=== PATIENT | female | born 1945 | race Caucasian/White ===

== ENCOUNTER 2017-12-01 14:29 | Observation (INO) ==
[2017-12-01] MEDS ORDERED: Ipratropium/Albuterol Neb 3 ML IH ONE (14:48)
[2017-12-01] MEDS ORDERED: methylPREDNISolone 125 MG/2 ML VIAL IVP ONE (14:48)
--- NOTE | 2017-12-01 15:11 | Emergency Department Note ---
Disposition Clinical Impression: Acute exacerbation of chronic obstructive airways disease Community acquired pneumonia Qualifiers: Laterality: right Lung location: middle lobe of lung Qualified Code(s): J18.1 - Lobar pneumonia, unspecified organism Metacarpal bone fracture Qualifiers: Encounter type: initial encounter Metacarpal bone: first Fracture type: closed Metacarpal location: unspecified portion of metacarpal Fracture morphology: unspecified fracture morphology Laterality: right Qualified Code(s): S62.201A - Unspecified fracture of first metacarpal bone, right hand, initial encounter for closed fracture Disposition: Admitted As Inpatient Condition: Good Time of Disposition: 18:07 SOB HPI - General Chief Complaint: ED Shortness of Breath/Dyspnea Stated Complaint: MATHEW Time Seen by Provider: 12/01/17 14:36 Source: patient, family Limitations: other Nursing Notes Reviewed: Yes Vital Signs Reviewed: Yes - History of Present Illness Patient is a 72-year-old female who presents to [facility] ED with a chief complaint of difficulty breathing and chest pain. States her symptoms started several weeks ago and have gotten worse. She was seen by her primary care physician who started her on nasal spray for allergies. States now she is having chest pain that persists for some time after she is coughing. Patient is a former smoker but has never been diagnosed with COPD or any other lung disease. States she has had a prior heart attack but does not currently have any stents in her heart. States the pain comes on with coughing and deep breathing. Chest pain as a tightness that is across her chest. Denies any nausea, vomiting, abdominal pain, problems with urination or bowel movements. States she coughs up green phlegm. Also has had intermittent fevers and chills. Pt Subjective Complaint: shortness of breath, cough, chest pain Onset (ago): week(s) (4) Severity: moderate Consistency/Duration: gradually worsening Improves with: nothing Worsens with: coughing Associated symptoms: Reports: chest pain, fever, cough, sputum production. Denies: nausea/vomiting, abdominal pain Treatment prior to arrival: none Cough present: Yes Cough Description: Involuntary Cough Frequency: Intermittent Sputum production: Yes Sputum Amount: Moderate Sputum Color: Green - Related Data Home oxygen amount: none Home Medications Medication Instructions Recorded Confirmed ALPRAZolam [Xanax 0.5 MG Tablet] 0.5 mg PO TID PRN 12/01/17 12/01/17 Ascorbic Acid [Vitamin C] 1,000 mg PO DAILY 12/01/17 12/01/17 Carvedilol [Carvedilol] 12.5 mg PO BID 12/01/17 12/01/17 Clobetasol Propionate 0.05% 1 appl TP BID 12/01/17 12/01/17 [Temovate] Cyanocobalamin (Vitamin B-12) 1,000 mcg PO DAILY 12/01/17 12/01/17 [Vitamin B12] Lactobacillus Combination No.4 1 cap PO DAILY 12/01/17 12/01/17 [Probiotic] Multivitamin [Animal Chews] 1 tab PO DAILY 12/01/17 12/01/17 Sertraline [Zoloft] 100 mg PO DAILY 12/01/17 12/01/17 hydrOXYzine HCl [Hydroxyzine HCl] 50 mg PO TID PRN 12/01/17 12/01/17 Allergies Allergy/AdvReac Type Severity Reaction Status Date / Time latex Allergy Rash Verified 12/01/17 17:20 clonazepam AdvReac See Verified 12/01/17 17:20 Comments All systems ED: reviewed and negative except as stated. Past Medical History - Past Medical History Attestation: Yes The following information was validated with the patient. Source: patient Medical history: Reports: arthritis, diabetes, fibromyalgia, GERD, hyperlipidemia, hypertension, liver disease, myocardial infarction Surgical history: Reports: cholecystectomy, hysterectomy, knee replacement Psychiatric history: Reports: anxiety, depression - Social History Smoking Status: Former smoker Smokeless Tobacco Status: No Alcohol use: Reports: none Drug use: Reports: none Physical Exam - General Limitations: other General appearance: alert, in no apparent distress - Head Head exam: atraumatic, normocephalic, normal inspection - Eye Eye exam: Present: normal appearance, EOMI - ENT ENT exam: normal exam, normal oropharynx, mucous membranes moist, TM's normal bilaterally - Neck Neck exam: Present: normal inspection, full ROM, trachea midline - Chest Chest inspection: Present: normal inspection, symmetric chest wall rise - Respiratory Respiratory exam: Present: wheezes (diffusely bilaterally) - Cardiovascular Cardiovascular exam: Present: regular rate, normal rhythm, normal heart sounds - Abdominal Exam Abdominal exam: Present: soft, Non-Tender. Absent: tenderness, distention, guarding, rebound, rigidity - Extremities Exam Extremities exam: Present: full ROM, other (Ecchymosis over the right hand with tenderness to palpation in the dorsal aspect.). Absent: pedal edema - Back Exam Back exam: Present: normal inspection, full ROM. Absent: tenderness - Neurological Exam Neurological exam: Present: alert, oriented X3 - Psychiatric Psychiatric exam: Present: normal affect, normal mood - Skin Skin exam: Present: warm, dry, intact, normal color Course Course Narrative: Patient seen and examined. Difficulty breathing and chest pain. Upon examination, she does have wheezing diffusely. She does maintain her oxygen saturation above 94% on room air. Triple DuoNeb ordered as well as one 25 mg of IV Solu-Medrol. Cardiopulmonary workup initiated. We will also get a d- dimer level since patient has pleuritic chest pain. Patient also complaining of right hand pain since she dropped an iron on it a few days ago. We will get a hand x-ray to rule out fracture. - Reevaluation(s) Reevaluation #1: Labwork showed an elevated d-dimer of 1300. CTA of the chest was ordered. Showed some signs of bronchitis/possible pneumonia, but no PE. We will go ahead and treat with azithromycin and Rocephin. Lactic acid was mildly elevated at 2.4. xray shows Intra-articular fracture through the base of the 1st metacarpal which is mildly displaced. Hand surgery Dr. Starks was consulted and will see her while she is in the hospital. Will place in thumb spica splint. Discussed with hospitalist who has accepted pt for admission. Time: 17:37 Vital Signs Temperature 97.7 F 12/01/17 14:30 Pulse Rate 67 12/01/17 14:30 Respiratory Rate 20 12/01/17 14:30 Blood Pressure 161/85 12/01/17 14:30 O2 Sat by Pulse Oximetry 95 12/01/17 14:30 Temperature 97.7 F 12/01/17 14:54 Pulse Rate 58 12/01/17 15:18 Respiratory Rate 18 12/01/17 15:18 Blood Pressure 121/62 12/01/17 15:18 O2 Sat by Pulse Oximetry 96 12/01/17 15:18 Oxygen Delivery Oxygen Delivery Room Air Shortness of Breath/Dyspnea - Medical Records Medical records reviewed: Yes I reviewed the patient's medical records. - Lab Data Lab results reviewed: Yes I reviewed the patient's lab results. Result diagrams: 12/01/17 15:14 12/01/17 15:14 Lab Results 12/01/17 12/01/17 12/01/17 Range/Units 15:14 15:14 15:14 WBC 5.6 (4.3-11.1) K/mcL RBC 4.19 (3.82-4.97) M/mcL Hgb 13.8 (11.5-15.4) g/dL Hct 39.9 (35.3-44.9) % MCV 95.2 (83.0-100.0) fL MCH 32.9 (28.0-33.3) pg MCHC 34.6 (31.6-35.5) g/dL RDW 14.2 (11.5-14.5) % Plt Count 84 L (140-400) K/mcL MPV 10.5 (9.4-12.4) fL Immature Gran % 0.2 (0-4) % Seg Neutrophils % 72.0 % Lymphocytes % 17.2 % Monocytes % 6.2 % Eosinophils % 3.9 % Basophils % 0.5 % Neutrophils # 4.0 (1.6-8.9) K/mcL Lymphocytes # 1.0 (0.6-4.6) K/mcL Monocytes # 0.4 (0.0-1.3) K/mcL Eosinophils # 0.2 (0.0-0.6) K/mcL Basophils # 0.0 (0.0-0.2) K/mcL D-Dimer 1305 H (0-500) ng/mLFEU Sodium 141 (136-145) mEq/L Potassium 4.4 (3.5-5.1) mEq/L Chloride 104 (98-107) mEq/L Carbon Dioxide 30 H (23-29) mEq/L BUN 19 (8-23) mg/dL Creatinine 0.77 (0.60-1.20) mg/dL Est GFR ( Amer) > 60 (> 60) Est GFR (Non-Af Amer) > 60 (> 60) BUN/Creatinine Ratio 25 (6-26) Glucose 229 H (70-105) mg/dL Calculated Osmolality 302 H (280-300) Lactic Acid (0.5-2.2) mmol/L Calcium 9.3 (8.6-10.3) mg/dL Troponin I < 0.03 (< 0.04) ng/mL B-Natriuretic Peptide (Less than 100) pg/mL 12/01/17 12/01/17 Range/Units 15:14 15:14 WBC (4.3-11.1) K/mcL RBC (3.82-4.97) M/mcL Hgb (11.5-15.4) g/dL Hct (35.3-44.9) % MCV (83.0-100.0) fL MCH (28.0-33.3) pg MCHC (31.6-35.5) g/dL RDW (11.5-14.5) % Plt Count (140-400) K/mcL MPV (9.4-12.4) fL Immature Gran % (0-4) % Seg Neutrophils % % Lymphocytes % % Monocytes % % Eosinophils % % Basophils % % Neutrophils # (1.6-8.9) K/mcL Lymphocytes # (0.6-4.6) K/mcL Monocytes # (0.0-1.3) K/mcL Eosinophils # (0.0-0.6) K/mcL Basophils # (0.0-0.2) K/mcL D-Dimer (0-500) ng/mLFEU Sodium (136-145) mEq/L Potassium (3.5-5.1) mEq/L Chloride (98-107) mEq/L Carbon Dioxide (23-29) mEq/L BUN (8-23) mg/dL Creatinine (0.60-1.20) mg/dL Est GFR ( Amer) (> 60) Est GFR (Non-Af Amer) (> 60) BUN/Creatinine Ratio (6-26) Glucose (70-105) mg/dL Calculated Osmolality (280-300) Lactic Acid 2.4 H (0.5-2.2) mmol/L Calcium (8.6-10.3) mg/dL Troponin I (< 0.04) ng/mL B-Natriuretic Peptide 144 H (Less than 100) pg/mL - Radiology Data Radiology results reviewed: Yes I reviewed the patient's radiology results. Chest X-Ray 12/01/17 14:49 IMPRESSION: No acute process. D/ / Alberto Perez MD / Alberto Perez MD Interpreting Provider: Alberto Perez MD Chest CTA 12/01/17 15:50 IMPRESSION: 1. No acute pulmonary artery embolism. 2. Indeterminate ground-glass density within the right middle lobe and more nodular appearance within the right upper lobe with additional right upper lobe bronchiolitis. The findings suggest probable postinfectious or inflammatory origin. Recommend three month re-evaluation to assess stability or resolution. RECOMMENDATIONS: Fleischner Society guidelines for follow-up and management of incidentally detected subsolid pulmonary nodules: Multiple subsolid nodules < 6 mm - CT at 3-6 months. If stable, consider CT at 2 and 4 years. > than or equal to 6 mm - CT at 3-6 months. Subsequent management based on the most suspicious nodule(s). - Low risk patients include individuals with minimal or absent history of smoking and other known risk factors. - High risk patients include individuals with a history or smoking or known risk factors. Radiology 2017 http://pubs.rsna.org/doi/full/10.1148/radiol.[email or web address] D/ / 12/01/2017 17:00:24 Alberto Perez MD / jameson Interpreting Provider: Alberto Perez MD Hand X-Ray 12/01/17 17:05 IMPRESSION: 1. Intra-articular fracture through the base of the 1st metacarpal which is mildly displaced. 2. 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 3. Osteopenia. D/ / Kurtis Louis MD / Kurtis Louis MD Interpreting Provider: Kurtis Louis MD - EKG Data EKG attestation: Yes I reviewed and interpreted this EKG. EKG results narrative: EKG done at 1453 shows normal sinus rhythm with a rate of [address] elevation or depression. There is inverted T waves noted in leads V3 through V6 as well as leads 2, 3, aVF. These appear flattened in the prior EKG done 05/07/2009.
[2017-12-01 15:33] LABS: Basophils % 0.5 %; Eosinophils # 0.2 K/mcL (0.0-0.6); Eosinophils % 3.9 %; Hematocrit 39.9 % (35.3-44.9); Hemoglobin 13.8 g/dL (11.5-15.4); Immature Granulocytes % 0.2 % (0-4); Lymphocytes % 17.2 %; Mean Corpuscular HGB Conc 34.6 g/dL (31.6-35.5); Mean Corpuscular Hemoglobin 32.9 pg (28.0-33.3); Mean Corpuscular Volume 95.2 fL (83.0-100.0); Mean Platelet Volume 10.5 fL (9.4-12.4); Monocytes # 0.4 K/mcL (0.0-1.3); Monocytes % 6.2 %; Platelet Count 84 K/mcL (140-400); Red Blood Count 4.19 M/mcL (3.82-4.97); Red Cell Distribution Width 14.2 % (11.5-14.5)
[2017-12-01] MEDS ORDERED: Isovue-370 500 ML INFUS..BTL IV ONE (15:50)
[2017-12-01] MEDS ORDERED: 0.9 % Sodium Chloride 1,000 ML IVC ONE (15:51)
[2017-12-01 15:58] LABS: BUN/Creatinine Ratio 25 (6-26); Blood Urea Nitrogen 19 mg/dL (8-23); Calcium 9.3 mg/dL (8.6-10.3); Carbon Dioxide 30 mEq/L (23-29); Chloride 104 mEq/L (98-107); Glucose 229 mg/dL (70-105); Osmolality,Calculated 302 (280-300); Potassium 4.4 mEq/L (3.5-5.1); Sodium 141 mEq/L (136-145); eGFR For African Americans > 60 (> 60); eGFR For Non-African Americans > 60 (> 60)
[2017-12-01 15:59] LABS: Troponin I < 0.03 ng/mL (< 0.04)
--- NOTE | 2017-12-01 16:11 | Emergency Department Note ---
Disposition Clinical Impression: Acute exacerbation of chronic obstructive airways disease Disposition: Still a Patient Condition: Good Forms: ED Satisfaction Letter General Adult HPI - General Chief complaint: ED Shortness of Breath/Dyspnea Stated complaint: MATHEW Time Seen by Provider: 12/01/17 14:36 Source: patient, family Limitations: other - History of Present Illness Pain Scale: 0 - Related Data Home Medications Medication Instructions Recorded Confirmed DULoxetine [Cymbalta] 20 mg PO DAILY 12/30/15 12/30/15 Esomeprazole Magnesium [Nexium] 40 mg PO DAILY 12/30/15 12/30/15 Lisinopril/Hydrochlorothiazide 1 each PO DAILY 12/30/15 12/30/15 [Zestoretic 10-12.5 mg Tablet] Ondansetron HCl [Zofran] 4 mg PO DAILY 12/30/15 12/30/15 clonazePAM [Klonopin] 0.5 mg PO BID 12/30/15 12/30/15 Previous Rx's Medication Instructions Recorded Sulfamethoxazole/Trimeth DS 1 each PO BID #20 tablet 09/19/15 [Bactrim DS] Ciprofloxacin HCl [Cipro] 250 mg PO BID 10 Days tablet 12/30/15 Ondansetron ODT [Zofran ODT] 4 mg SL Q8HR PRN #15 tab.rapdis 12/30/15 metroNIDAZOLE [Flagyl] 500 mg PO TID 10 Days tablet 12/30/15 Ondansetron HCl [Zofran] 4 mg PO Q4H PRN #10 tablet 03/20/16 Ferrous Sulfate 325 mg PO BIDWM #60 tablet 05/30/16 hydrOXYzine HCl [Hydroxyzine HCl] 25 mg PO BID #60 tab 07/03/16 Allergies Allergy/AdvReac Type Severity Reaction Status Date / Time latex Allergy Rash Verified 03/15/17 14:43 clonazepam AdvReac See Verified 03/15/17 14:43 Comments Past Medical History - Past Medical History Medical history: Reports: arthritis, diabetes, fibromyalgia, GERD, hyperlipidemia, hypertension, liver disease, myocardial infarction Surgical history: Reports: cholecystectomy, hysterectomy, knee replacement Psychiatric history: Reports: anxiety, depression - Social History Smoking Status: Former smoker Smokeless Tobacco Status: No Alcohol use: Reports: none Drug use: Reports: none Physical Exam - General Limitations: other General appearance: alert, in no apparent distress Course Vital Signs Temperature 97.7 F 12/01/17 14:30 Pulse Rate 67 12/01/17 14:30 Respiratory Rate 20 12/01/17 14:30 Blood Pressure 161/85 12/01/17 14:30 O2 Sat by Pulse Oximetry 95 12/01/17 14:30 Temperature 97.7 F 12/01/17 14:54 Pulse Rate 58 12/01/17 15:18 Respiratory Rate 18 12/01/17 15:18 Blood Pressure 121/62 12/01/17 15:18 O2 Sat by Pulse Oximetry 96 12/01/17 15:18 Oxygen Delivery Oxygen Delivery Room Air Medical Decision Making - Lab Data Result diagrams: 12/01/17 15:14 12/01/17 15:14 Lab Results 12/01/17 12/01/17 12/01/17 Range/Units 15:14 15:14 15:14 WBC 5.6 (4.3-11.1) K/mcL RBC 4.19 (3.82-4.97) M/mcL Hgb 13.8 (11.5-15.4) g/dL Hct 39.9 (35.3-44.9) % MCV 95.2 (83.0-100.0) fL MCH 32.9 (28.0-33.3) pg MCHC 34.6 (31.6-35.5) g/dL RDW 14.2 (11.5-14.5) % Plt Count 84 L (140-400) K/mcL MPV 10.5 (9.4-12.4) fL Immature Gran % 0.2 (0-4) % Seg Neutrophils % 72.0 % Lymphocytes % 17.2 % Monocytes % 6.2 % Eosinophils % 3.9 % Basophils % 0.5 % Neutrophils # 4.0 (1.6-8.9) K/mcL Lymphocytes # 1.0 (0.6-4.6) K/mcL Monocytes # 0.4 (0.0-1.3) K/mcL Eosinophils # 0.2 (0.0-0.6) K/mcL Basophils # 0.0 (0.0-0.2) K/mcL D-Dimer 1305 H (0-500) ng/mLFEU Sodium 141 (136-145) mEq/L Potassium 4.4 (3.5-5.1) mEq/L Chloride 104 (98-107) mEq/L Carbon Dioxide 30 H (23-29) mEq/L BUN 19 (8-23) mg/dL Creatinine 0.77 (0.60-1.20) mg/dL Est GFR ( Amer) > 60 (> 60) Est GFR (Non-Af Amer) > 60 (> 60) BUN/Creatinine Ratio 25 (6-26) Glucose 229 H (70-105) mg/dL Calculated Osmolality 302 H (280-300) Lactic Acid (0.5-2.2) mmol/L Calcium 9.3 (8.6-10.3) mg/dL Troponin I < 0.03 (< 0.04) ng/mL B-Natriuretic Peptide (Less than 100) pg/mL 12/01/17 12/01/17 Range/Units 15:14 15:14 WBC (4.3-11.1) K/mcL RBC (3.82-4.97) M/mcL Hgb (11.5-15.4) g/dL Hct (35.3-44.9) % MCV (83.0-100.0) fL MCH (28.0-33.3) pg MCHC (31.6-35.5) g/dL RDW (11.5-14.5) % Plt Count (140-400) K/mcL MPV (9.4-12.4) fL Immature Gran % (0-4) % Seg Neutrophils % % Lymphocytes % % Monocytes % % Eosinophils % % Basophils % % Neutrophils # (1.6-8.9) K/mcL Lymphocytes # (0.6-4.6) K/mcL Monocytes # (0.0-1.3) K/mcL Eosinophils # (0.0-0.6) K/mcL Basophils # (0.0-0.2) K/mcL D-Dimer (0-500) ng/mLFEU Sodium (136-145) mEq/L Potassium (3.5-5.1) mEq/L Chloride (98-107) mEq/L Carbon Dioxide (23-29) mEq/L BUN (8-23) mg/dL Creatinine (0.60-1.20) mg/dL Est GFR ( Amer) (> 60) Est GFR (Non-Af Amer) (> 60) BUN/Creatinine Ratio (6-26) Glucose (70-105) mg/dL Calculated Osmolality (280-300) Lactic Acid 2.4 H (0.5-2.2) mmol/L Calcium (8.6-10.3) mg/dL Troponin I (< 0.04) ng/mL B-Natriuretic Peptide 144 H (Less than 100) pg/mL Attestation Statement - Attestation Attestation: I examined this patient and my medical decision-making was reviewed with the Resident Physician. I agree with the documented findings, disposition and treatment plan as described except to the extent set forth below. 72 year old female presents to the ED with complaints of MATHEW and has had pulse ox of upper 80s at home ith cough. WE will do cardiopulmonary workup including a CTA chest due to D-dimer of 1300. Liely be admitted to medicine since at rest she is 91%
[2017-12-01] MEDS ORDERED: cefTRIAXone 2,000 MG in 0.9 % Sodium Chloride Mini Bag 100 ML IVPB ONE (17:10)
[2017-12-01] MEDS ORDERED: Azithromycin 500 MG in D5% in Water 250 ML IVPB ONE (17:10)
[2017-12-01] MEDS ORDERED: hydrOXYzine pamoate 25 MG CAPSULE PO PRN (18:04)
[2017-12-01] MEDS ORDERED: Naloxone 0.4 MG/ML INJ IVP PRN (18:09)
[2017-12-01] MEDS ORDERED: Acetaminophen 325 MG TABLET PO PRN (18:09)
[2017-12-01] MEDS ORDERED: Dextrose Gel 15 GM/37.5 ML TUBE PO PRN ×2 (18:16)
[2017-12-01] MEDS ORDERED: *HR* Dextrose 50 % in Water (Syg) 50 ML SYRINGE IVP PRN (18:16)
[2017-12-01] MEDS ORDERED: D5% in Water 1,000 ML IVC PRN (18:16)
--- NOTE | 2017-12-01 18:21 | Internal Med History&Physical ---
Addendum entered and electronically signed by Javan Tucker 12/01/17 19:04: Original Note: <GarrettJavan - Last Filed: 12/01/17 18:18> Date of Encounter: 12/01/17 Time of Encounter: 18:18 Internal Medicine - H&P: HPI Admitted From: Home Plans for Post Hospital Care: Home History of present illness: Ms. Jameson is a 72-year-old female who presents to [facility] ED with a chief complaint of difficulty breathing and chest pain. States her symptoms started several weeks ago and have gotten worse. She was seen by her primary care physician who started her on nasal spray for allergies. States now she is having chest pain that persists for some time after she is coughing. Patient is a former smoker but has never been diagnosed with COPD or any other lung disease. States she has had a prior heart attack but does not currently have any stents in her heart. States the pain comes on with coughing and deep breathing. Chest pain as a tightness that is across her chest. Denies any nausea, vomiting, abdominal pain, problems with urination or bowel movements. States she coughs up green phlegm. Also has had intermittent fevers and chills. She also reported recent accident, when heavy object landed on her right hand 2 days ago. She had a very bad pain in the right hand. At the ED, her vital signs were stable, labs revealed elevated lactate, CT chest showed possible pneumonia. Hand x-ray revealed first metacarpal fracture. A cast was placed by ED physician. She will be admitted as inpatient for further management. Past Med Surg Social Fam HX - Past Medical History Medical history: arthritis, diabetes, fibromyalgia, GERD, hyperlipidemia, hypertension, liver disease, myocardial infarction Psychiatric history: anxiety, depression - Past Surgical History Surgical History: cholecystectomy, hysterectomy, knee replacement - Social History Smoking Status: Former smoker Smokeless Tobacco Status: No Alcohol use: none Drug use: none Internal Medicine - H&P: Meds ALPRAZolam [Xanax 0.5 MG Tablet] 0.5 mg PO TID PRN 12/01/17 [History] Ascorbic Acid [Vitamin C] 1,000 mg PO DAILY 12/01/17 [History] Carvedilol [Carvedilol] 12.5 mg PO BID 12/01/17 [History] Clobetasol Propionate 0.05% [Temovate] 1 appl TP BID 12/01/17 [History] Cyanocobalamin (Vitamin B-12) [Vitamin B12] 1,000 mcg PO DAILY 12/01/17 [History ] Lactobacillus Combination No.4 [Probiotic] 1 cap PO DAILY 12/01/17 [History] Multivitamin [Animal Chews] 1 tab PO DAILY 12/01/17 [History] Sertraline [Zoloft] 100 mg PO DAILY 12/01/17 [History] hydrOXYzine HCl [Hydroxyzine HCl] 50 mg PO TID PRN 12/01/17 [History] 3 Allergy/AdvReac Type Severity Reaction Status Date / Time latex Allergy Rash Verified 12/01/17 17:20 clonazepam AdvReac See Verified 12/01/17 17:20 Comments All Systems PM: A 10-system review of systems was performed and is negative for pertinent findings except as documented above in the HPI. Review of systems: REVIEW OF SYSTEMS: CONSTITUTIONAL: see HPI. HEENT: Eyes: No visual loss, blurred vision, double vision or yellow sclerae. Ears, Nose, Throat: No hearing loss, sneezing, congestion, runny nose or sore throat. SKIN: No rash or itching. CARDIOVASCULAR: see HPI. RESPIRATORY: see HPI. GASTROINTESTINAL: No anorexia, nausea, vomiting or diarrhea. No abdominal pain or blood. GENITOURINARY: No dysuria, urgency, or frequency. NEUROLOGICAL: No headache, dizziness, syncope, paralysis, ataxia, numbness or tingling in the extremities. No change in bowel or bladder control. MUSCULOSKELETAL: No muscle, back pain, joint pain or stiffness. HEMATOLOGIC: No anemia, bleeding or bruising. LYMPHATICS: No enlarged nodes. No history of splenectomy. PSYCHIATRIC: No history of depression or anxiety. ENDOCRINOLOGIC: No reports of sweating, cold or heat intolerance. No polyuria or polydipsia. - Constitutional Vitals: Temp Pulse Resp BP Pulse Ox 97.7 F 58 18 121/62 96 12/01/17 14:54 12/01/17 15:18 12/01/17 15:18 12/01/17 15:18 12/01/17 15:18 General appearance: Present: A&O X 3 Exam: PHYSICAL EXAMINATION: GENERAL APPEARANCE: The patient is alert, oriented and in no acute distress. HEENT: Head is normocephalic. The sinuses are nontender. Pupils are equal and reactive. The nares are patent. Oropharynx clear without lesions. NECK: Supple without lymphadenopathy. HEART: Regular rate and rhythm. LUNGS: No crackles or wheezes are heard. ABDOMEN: Soft, nontender, nondistended with good bowel sounds heard. Inguinal area is normal. EXTREMITIES: Without cyanosis, clubbing or edema. NEUROLOGICAL: Gross nonfocal. SKIN: Warm and dry without any rash. Internal Med - H&P Results - Labs CBC & Chem 7: 12/01/17 15:14 12/01/17 15:14 - Assessment and plan (1) Chest pain Current Visit: Yes Status: Acute Assessment and plan: 72-year-old female, former smoker, presented with shortness breath, cough, any chest pain. - Chest pain is associated with cough and breathing, likely pruritic. - Continue cycle troponin, telemetry monitoring, EKG as needed. Qualifiers: Chest pain type: chest pain on breathing Qualified Code(s): R07.1 - Chest pain on breathing; R07.81 - Pleurodynia (2) Community acquired pneumonia Current Visit: Yes Status: Acute Assessment and plan: We will treat as community-acquired pneumonia with antibiotics, this from icing plus Rocephin. Pending streppneumo and Legionella antigen. Qualifiers: Laterality: right Lung location: middle lobe of lung Qualified Code(s): J18.1 - Lobar pneumonia, unspecified organism (3) Metacarpal bone fracture Current Visit: Yes Status: Acute Assessment and plan: Chest x-ray right hand revealed first metacarpal fracture, cast applied by ED physician, orthopedics consulted. Qualifiers: Encounter type: initial encounter Metacarpal bone: first Fracture type: closed Metacarpal location: unspecified portion of metacarpal Fracture morphology: unspecified fracture morphology Laterality: right Qualified Code (s): S62.201A - Unspecified fracture of first metacarpal bone, right hand, initial encounter for closed fracture (4) Elevated blood sugar level Current Visit: Yes Status: Acute Assessment and plan: She never been diagnosis with diabetes, will check hemoglobin A1c, put patient on insulin sliding scale. (5) Osteopenia Current Visit: Yes Status: Acute Assessment and plan: X-ray right hand revealed osteopenia, will check a vitamin D level, we will place if it is low. Qualifiers: Osteopenia location: hand Laterality: right Qualified Code(s): M85.841 - Other specified disorders of bone density and structure, right hand - Time Spent With Patient Total time spent is greater than 50% in coordination of care (as documented) at patient's floor/unit and/or counseling patient: Greater than 35 minutes <Carol Ann Sadler - Last Filed: 12/01/17 19:59> Date of Encounter: 12/01/17 Internal Medicine - H&P: HPI History of present illness: Ms. Jameson is a 72 year old female All Systems PM: A 10-system review of systems was performed and is negative for pertinent findings except as documented above in the HPI. - Constitutional Vitals: Temp Pulse Resp BP Pulse Ox 98.1 F 65 18 176/78 94 12/01/17 19:33 12/01/17 19:33 12/01/17 19:33 12/01/17 19:33 12/01/17 19:33 Internal Med - H&P Results - Labs CBC & Chem 7: 12/01/17 15:14 12/01/17 15:14 Labs: Cardiac Enzymes 12/01/17 Range/Units 18:20 Troponin I < 0.03 (< 0.04) ng/mL - Attending Attestation I have seen and examined this patient independently. I have discussed with [employer] Mr Tucker regarding the management plan. Agree with the documentation. - Assessment and plan (1) Community acquired pneumonia Current Visit: Yes Status: Acute Qualifiers: Laterality: right Lung location: middle lobe of lung Qualified Code(s): J18.1 - Lobar pneumonia, unspecified organism (2) Metacarpal bone fracture Current Visit: Yes Status: Acute Qualifiers: Encounter type: initial encounter Metacarpal bone: first Fracture type: closed Metacarpal location: unspecified portion of metacarpal Fracture morphology: unspecified fracture morphology Laterality: right Qualified Code (s): S62.201A - Unspecified fracture of first metacarpal bone, right hand, initial encounter for closed fracture (3) Chest pain Current Visit: Yes Status: Acute Qualifiers: Chest pain type: chest pain on breathing Qualified Code(s): R07.1 - Chest pain on breathing; R07.81 - Pleurodynia (4) Elevated blood sugar level Current Visit: Yes Status: Acute (5) Osteopenia Current Visit: Yes Status: Acute Qualifiers: Osteopenia location: hand Laterality: right Qualified Code(s): M85.841 - Other specified disorders of bone density and structure, right hand - Time Spent With Patient Total time spent is greater than 50% in coordination of care (as documented) at patient's floor/unit and/or counseling patient:
[2017-12-01] MEDS ORDERED: Ipratropium/Albuterol Neb 3 ML IH PRN (19:05)
[2017-12-01] MEDS: traMADol 50 MG TABLET PO PRN (20:02)
[2017-12-01] MEDS: *HR* Heparin 5,000 UNIT/ML VIAL SQ SCH (20:03)
[2017-12-01] MEDS: Azithromycin 500 MG in D5% in Water 250 ML IVPB SCH (20:04)
[2017-12-01] MEDS: Ipratropium/Albuterol Neb 3 ML IH SCH ×2 (21:11→21:45)
[2017-12-01] MEDS: CLOBETASOL PROPIONATE 15 GM TUBE TP SCH (21:53)
[2017-12-01] MEDS: ALPRAZolam 0.5 MG TABLET PO PRN (21:54)
[2017-12-01] MEDS: Insulin LISPRO 300 UNITS/3 ML VIAL SQ SCH (21:56)
[2017-12-01] MEDS: 0.9 % Sodium Chloride 1,000 ML IVC SCH (23:36)
[2017-12-02 01:36] LABS: Hematocrit 36.6 % (35.3-44.9); Hemoglobin 12.5 g/dL (11.5-15.4); Mean Corpuscular HGB Conc 34.2 g/dL (31.6-35.5); Mean Corpuscular Hemoglobin 32.6 pg (28.0-33.3); Mean Corpuscular Volume 95.6 fL (83.0-100.0); Neutrophils # 3.2 K/mcL (1.6-8.9); Platelet Count 76 K/mcL (140-400); Red Blood Count 3.83 M/mcL (3.82-4.97); Red Cell Distribution Width 14.2 % (11.5-14.5); Segmented Neutrophils % 86.9 %
[2017-12-02 01:37] LABS: Basophils % 0.3 %; Immature Granulocytes % 0.3 % (0-4); Lymphocytes # 0.4 K/mcL (0.6-4.6); Lymphocytes % 9.8 %; Monocytes # 0.1 K/mcL (0.0-1.3); Monocytes % 2.7 %
[2017-12-02 01:58] LABS: BUN/Creatinine Ratio 24 (6-26); Blood Urea Nitrogen 19 mg/dL (8-23); Carbon Dioxide 22 mEq/L (23-29); Chloride 106 mEq/L (98-107); Glucose 349 mg/dL (70-105); Osmolality,Calculated 300 (280-300); Potassium 3.5 mEq/L (3.5-5.1); Sodium 137 mEq/L (136-145); eGFR For African Americans > 60 (> 60); eGFR For Non-African Americans > 60 (> 60)
[2017-12-02] MEDS: Ipratropium/Albuterol Neb 3 ML IH SCH ×4 (04:15→22:19)
[2017-12-02] MEDS: traMADol 50 MG TABLET PO PRN (04:34)
[2017-12-02] MEDS: *HR* Heparin 5,000 UNIT/ML VIAL SQ SCH (05:13)
[2017-12-02] MEDS: Cyanocobalamin (B-12) 1,000 MCG TABLET PO SCH (07:44)
[2017-12-02] MEDS: Lactobacillus 1 EACH CAP.SPRINK PO SCH (07:44)
[2017-12-02] MEDS: cefTRIAXone 1,000 MG in Water for inj. (sterile) 20 ML 10 ML IVP SCH (07:44)
[2017-12-02] MEDS: 0.9 % Sodium Chloride 1,000 ML IVC SCH (07:44)
[2017-12-02] MEDS: Ascorbic Acid 500 MG TABLET PO SCH (07:45)
[2017-12-02] MEDS: Multivit/Ca/Min/Fe/FA 1 TAB TABLET PO SCH (07:45)
[2017-12-02] MEDS: Insulin LISPRO 300 UNITS/3 ML VIAL SQ SCH ×4 (07:52→20:33)
[2017-12-02] MEDS: CLOBETASOL PROPIONATE 15 GM TUBE TP SCH ×2 (07:53→21:28)
[2017-12-02] MEDS: ALPRAZolam 0.5 MG TABLET PO PRN ×3 (08:08→22:52)
[2017-12-02] MEDS: Ketorolac 30 MG/ML VIAL IVP PRN ×2 (11:05→19:49)
--- NOTE | 2017-12-02 17:38 | Internal Med Progress Note ---
Date of Encounter: 12/02/17 Time of Encounter: 11:00 - Assessment and plan (1) Community acquired pneumonia Current Visit: Yes Status: Acute Assessment and plan: Patient with shortness of breath with suspected pneumonia Continue IV azithromycin in addition to IV ceftriaxone Qualifiers: Laterality: right Lung location: middle lobe of lung Qualified Code(s): J18.1 - Lobar pneumonia, unspecified organism (2) Metacarpal bone fracture Current Visit: Yes Status: Acute Assessment and plan: X-ray of right hand revealed first metacarpal fracture; cast applied by ED physician orthopedics consulted and appreciate recommendations. Qualifiers: Encounter type: initial encounter Metacarpal bone: first Fracture type: closed Metacarpal location: unspecified portion of metacarpal Fracture morphology: unspecified fracture morphology Laterality: right Qualified Code (s): S62.201A - Unspecified fracture of first metacarpal bone, right hand, initial encounter for closed fracture (3) Chest pain Current Visit: Yes Status: Acute Assessment and plan: Cardiac biomarkers negative Suspect secondary to pneumonia Continue to monitor on telemetry Qualifiers: Chest pain type: chest pain on breathing Qualified Code(s): R07.1 - Chest pain on breathing; R07.81 - Pleurodynia (4) Osteopenia Current Visit: Yes Status: Acute Assessment and plan: X-ray right hand revealed osteopenia vitamin D level within normal limits Qualifiers: Osteopenia location: hand Laterality: right Qualified Code(s): M85.841 - Other specified disorders of bone density and structure, right hand - Time Spent With Patient Total time spent is greater than 50% in coordination of care (as documented) at patient's floor/unit and/or counseling patient: - Subjective Interval history: Patient complaining of right hand pain this morning secondary to right first metacarpal fracture Patient also with shortness of breath secondary to suspected community acquired pneumonia - Constitutional Vitals: Temp Pulse Resp BP Pulse Ox 99.2 F 64 18 157/75 94 12/02/17 16:04 12/02/17 16:04 12/02/17 16:11 12/02/17 16:04 12/02/17 16:11 General appearance: Present: A&O X 3, no acute distress - Respiratory Respiratory exam: Present: CTAB. Absent: accessory muscle use, rales, rhonchi, wheezes - Cardiovascular Cardiovascular exam: Present: RRR, +S1, +S2. Absent: diastolic murmur, gallop, rubs, systolic murmur Internal Medicine: Result - Labs CBC & Chem 7: 12/02/17 01:17 12/02/17 01:17 Labs: Short CBC 12/02/17 Range/Units 01:17 WBC 3.7 L (4.3-11.1) K/mcL Hgb 12.5 (11.5-15.4) g/dL Hct 36.6 (35.3-44.9) % Plt Count 76 L (140-400) K/mcL Neutrophils # 3.2 (1.6-8.9) K/mcL BMP 12/02/17 01:17 Sodium 137 Potassium 3.5 Chloride 106 Carbon Dioxide 22 L BUN 19 Creatinine 0.79 Glucose 349 H Calcium 9.0 Cardiac Enzymes 12/01/17 12/02/17 12/02/17 Range/Units 18:20 01:17 07:19 Troponin I < 0.03 < 0.03 < 0.03 (< 0.04) ng/mL - ABG Interpretation ABG results: PT/INR, D-dimer D-Dimer 1305 ng/mLFEU (0-500) H 12/01/17 15:14 Consult Discharge Plan - Plan Referrals: Manny Sheldon MD [Primary Care Provider] -
--- NOTE | 2017-12-02 17:59 | Orthopedic Consult Note ---
Date of Encounter: 12/02/17 Time of Encounter: 17:54 Assessment and Plan (1) River's fracture of base of metacarpal bone of right thumb Current Visit: Yes Status: Acute 5 day old fracture with minimal displacement but intra-articular step-off Plan: I discussed with the patient that normally recommend closed reduction percutaneous pinning for this fracture type. Currently she was admitted for worsening COPD with an underlying community acquired pneumonia. We can always do surgery at a later date once her wounds have improved. If surgery will be delayed, which was treated in a thumb spica cast. Also discussed the fact that should fracture healing is position, it has overall good alignment but she may develop some arthritis. If the arthritis becomes bothersome we can always do an arthroplasty in the future. Qualifiers: Encounter type: initial encounter Fracture type: closed Qualified Code(s) : S62.211A - Holman's fracture, right hand, initial encounter for closed fracture History of Present Illness Chief complaint: Right thumb pain HPI: Ms. Jameson is a 72 year old female who was admitted yesterday for worsening COPD. The patient was complained of pain in the base of her right thumb. She states that on Saturday a metal grill fell from overhead and hit her right hand. X-rays emergency room show a first metacarpal base fracture. She was splinted. She states the pain is controlled now. Past Med Surg Social Fam HX - Past Medical History Medical history: arthritis, diabetes, fibromyalgia, GERD, hyperlipidemia, hypertension, liver disease, myocardial infarction Psychiatric history: anxiety, depression - Past Surgical History Surgical History: cholecystectomy, hysterectomy, knee replacement - Social History Smoking Status: Former smoker Smokeless Tobacco Status: No Alcohol use: none Drug use: none Medications and Allergies ALPRAZolam [Xanax 0.5 MG Tablet] 0.5 mg PO TID PRN 12/01/17 [History] Ascorbic Acid [Vitamin C] 1,000 mg PO DAILY 12/01/17 [History] Carvedilol [Carvedilol] 12.5 mg PO BID 12/01/17 [History] Clobetasol Propionate 0.05% [Temovate] 1 appl TP BID 12/01/17 [History] Cyanocobalamin (Vitamin B-12) [Vitamin B12] 1,000 mcg PO DAILY 12/01/17 [History ] Lactobacillus Combination No.4 [Probiotic] 1 cap PO DAILY 12/01/17 [History] Multivitamin [Animal Chews] 1 tab PO DAILY 12/01/17 [History] Sertraline [Zoloft] 100 mg PO DAILY 12/01/17 [History] hydrOXYzine HCl [Hydroxyzine HCl] 50 mg PO TID PRN 12/01/17 [History] 3 Allergy/AdvReac Type Severity Reaction Status Date / Time latex Allergy Rash Verified 12/01/17 17:20 clonazepam AdvReac See Verified 12/01/17 17:20 Comments All Systems Reviewed: The remainder of the systems were reviewed and are negative Physical Exam - Constitutional Vitals: Temp Pulse Resp BP Pulse Ox 99.2 F 64 18 157/75 94 12/02/17 16:04 12/02/17 16:04 12/02/17 16:11 12/02/17 16:04 12/02/17 16:11 General appearance IM: A&O X 3, pleasant, no acute distress Exam: Right hand: Mild bruising noted, patient has a dorsal splint from the tip of thumb along the radial aspect of wrist. She is able to move fingers well. Sensation grossly intact although reports mild tingling which is baseline. Good capillary refill Results - Labs Result Diagrams: 12/02/17 01:17 12/02/17 01:17 Labs: Abnormal lab results WBC 3.7 K/mcL (4.3-11.1) L 12/02/17 01:17 Plt Count 76 K/mcL (140-400) L 12/02/17 01:17 Lymphocytes # 0.4 K/mcL (0.6-4.6) L 12/02/17 01:17 D-Dimer 1305 ng/mLFEU (0-500) H 12/01/17 15:14 Carbon Dioxide 22 mEq/L (23-29) L 12/02/17 01:17 Glucose 349 mg/dL (70-105) H 12/02/17 01:17 POC Glucose 169 mg/dL (70-99) H 12/02/17 11:11 Lactic Acid 2.9 mmol/L (0.5-2.2) H 12/02/17 01:17 B-Natriuretic Peptide 144 pg/mL (Less than 100) H 12/01/17 15:14 H & H 05/28/18 Range/Units 01:17 Hgb 12.5 (11.5-15.4) g/dL Hct 36.6 (35.3-44.9) % All other labs normal. - Diagnostic results Wrist/Hand x-ray: image reviewed (Right thumb metacarpal intra-articular base fracture, mild displacement) Consult Discharge Plan - Plan Referrals: Manny Sheldon MD [Primary Care Provider] -
[2017-12-02] MEDS: Azithromycin 500 MG in D5% in Water 250 ML IVPB SCH (19:48)
[2017-12-03] MEDS ORDERED: Acetaminophen 325 MG TABLET PO PRN (00:03)
[2017-12-03] MEDS ORDERED: *HR* OxyCODONE Immed Rel 5 MG TABLET PO ONE (03:42)
[2017-12-03] MEDS: Ipratropium/Albuterol Neb 3 ML IH SCH ×2 (03:43→09:56)
[2017-12-03] MEDS: Insulin LISPRO 300 UNITS/3 ML VIAL SQ SCH ×2 (07:41→11:11)
[2017-12-03 08:37] LABS: Estimated Average Glucose 123 mg/dl; Hemoglobin A1C 5.9 %
[2017-12-03] MEDS: Cyanocobalamin (B-12) 1,000 MCG TABLET PO SCH (09:29)
[2017-12-03] MEDS: Multivit/Ca/Min/Fe/FA 1 TAB TABLET PO SCH (09:29)
[2017-12-03] MEDS: Ascorbic Acid 500 MG TABLET PO SCH (09:29)
[2017-12-03] MEDS: Lactobacillus 1 EACH CAP.SPRINK PO SCH (09:29)
[2017-12-03] MEDS: ALPRAZolam 0.5 MG TABLET PO PRN (09:30)
[2017-12-03] MEDS: CLOBETASOL PROPIONATE 15 GM TUBE TP SCH (09:30)
[2017-12-03] MEDS: cefTRIAXone 1,000 MG in Water for inj. (sterile) 20 ML 10 ML IVP SCH (09:30)
[2017-12-03] MEDS: Ketorolac 30 MG/ML VIAL IVP PRN (09:35)
--- NOTE | 2017-12-03 11:00 | Discharge Summary ---
- NOTES TO OUTPATIENT PROVIDER Notes to Outpatient Provider: Patient was admitted for community-acquired pneumonia, culture is negative. Incidental finding of right fifth metacarpal fracture, seen by orthopedic surgery. Discharged home on oral antibiotics with appropriate follow-up with orthopedic surgery for 12/04/2017. Incidental finding of pulmonary nodules suspected to be inflammatory, recommend repeat imaging 6 weeks to 3 months post treatment for pneumonia. Orders not resulted at time of discharge: Pending orders 12/01/17 23:02 Culture,Blood [BC] Stat 12/01/17 23:04 Culture,Sputum with Gram Stain [RM] Routine Date of Encounter: 12/03/17 Time of Encounter: 10:58 - Discharge Diagnosis (1) Community acquired pneumonia Priority: Primary Status: Acute Qualifiers: Laterality: right Lung location: middle lobe of lung Qualified Code(s): J18.1 - Lobar pneumonia, unspecified organism (2) Metacarpal bone fracture Priority: Primary Status: Acute Qualifiers: Encounter type: initial encounter Metacarpal bone: first Fracture type: closed Metacarpal location: unspecified portion of metacarpal Fracture morphology: unspecified fracture morphology Laterality: right Qualified Code (s): S62.201A - Unspecified fracture of first metacarpal bone, right hand, initial encounter for closed fracture (3) Chest pain Priority: Primary Status: Resolved Qualifiers: Chest pain type: chest pain on breathing Qualified Code(s): R07.1 - Chest pain on breathing; R07.81 - Pleurodynia (4) Osteopenia Priority: Secondary Status: Chronic Qualifiers: Osteopenia location: hand Laterality: right Qualified Code(s): M85.841 - Other specified disorders of bone density and structure, right hand (5) Pre-diabetes Priority: Primary Status: Chronic Hospital course: Ms. Jameson is a 72 year old female with medical history of prediabetes, fibromyalgia, GERD, hypertension and hyperlipidemia was admitted to observation for management of community-acquired pneumonia following complains of chest pain and cough. Upon admission, complete blood count and chemistry were unremarkable, chest x-ray and CAT scan showed right sided multiple inflammatory nodules suspicious for pneumonia. Urinary streptococcal antigen and Legionella antigen were negative, blood culture was negative. A1c was 5.9. EKG was nonischemic repeat troponins 3 were negative. Chest pain was pleuritic. Hand x-ray of the right showed fractured first metacarpal base and orthopedics was consulted, management conservative due to inabliity to perform surgery as patient is currently being treated for PNA She also had lactic acidosis on admission which is down trending. She is seen and examined at the bedside this morning with her daughter at the bedside, she denies shortness of breath, chest pain has resolved,she is clinicall and hemodynamically stable to be discharged home from a medical stand point For her 1st metacarpal base fracture,orthopedics surgery recommends follow up in clinic 12/04/17 Discharge discussed with: patient, family, nurse, social work - Time Spent with Patient Total time spent providing and/or coordinating discharge services: Greater than 30 minutes - Discharge Medications Prescriptions: Azithromycin [Zithromax] 500 mg PO Q24H #3 tablet Cefdinir [Omnicef] 300 mg PO BID #8 capsule Oxycodone HCl/Acetaminophen [Percocet 7.5-325 mg Tablet] 1 each PO Q6H PRN 4 Days #12 tablet PRN Reason: Severe Pain Home Medications: ALPRAZolam [Xanax 0.5 MG Tablet] 0.5 mg PO TID PRN 12/01/17 [History] Ascorbic Acid [Vitamin C] 1,000 mg PO DAILY 12/01/17 [History] Carvedilol 12.5 mg PO BID 12/01/17 [History] Clobetasol Propionate 0.05% [Temovate] 1 appl TP BID 12/01/17 [History] Cyanocobalamin (Vitamin B-12) [Vitamin B12] 1,000 mcg PO DAILY 12/01/17 [History ] Lactobacillus Combination No.4 [Probiotic] 1 cap PO DAILY 12/01/17 [History] Multivitamin [Animal Chews] 1 tab PO DAILY 12/01/17 [History] Sertraline [Zoloft] 100 mg PO DAILY 12/01/17 [History] hydrOXYzine HCl [Hydroxyzine HCl] 50 mg PO TID PRN 12/01/17 [History] Azithromycin [Zithromax] 500 mg PO Q24H #3 tablet 12/03/17 [Rx] Cefdinir [Omnicef] 300 mg PO BID #8 capsule 12/03/17 [Rx] Oxycodone HCl/Acetaminophen [Percocet 7.5-325 mg Tablet] 1 each PO Q6H PRN 4 Days #12 tablet 12/03/17 [Rx] Allergies/Adverse Reactions: 3 Allergy/AdvReac Type Severity Reaction Status Date / Time latex Allergy Rash Verified 12/01/17 17:20 clonazepam AdvReac See Verified 12/01/17 17:20 Comments Date of admission: 12/01/17 17:26 Primary care physician: Manny Sheldon MD Consults: 12/01/17 17:41 Consult to Orthopedic Surgery [CONS] Routine Consulting Provider: Maurilio Starks Reason for Consult: 1st metacarpal fx Time Notified: 17:42 Call Completed: Yes Discharging clinician: Jonny Cobian Anticipated date of discharge: 12/03/17 - Constitutional Vitals: Temp Pulse Resp BP Pulse Ox 98.0 F 55 17 150/74 95 12/03/17 07:35 12/03/17 07:35 12/03/17 07:35 12/03/17 07:35 12/03/17 07:35 General appearance: Present: A&O X 3, no acute distress - Head Head exam: Present: atraumatic, normocephalic - Eye Eye exam: Present: PERRL, conjuntiva pink, sclera anicteric Pupils: Present: PERRL - Neck Neck exam general surgery: Present: supple, trachea midline. Absent: lymphadenopathy - Respiratory Respiratory exam: Present: CTAB. Absent: accessory muscle use, rales, rhonchi, wheezes - Cardiovascular Cardiovascular exam: Present: RRR, +S1, +S2. Absent: diastolic murmur, gallop, rubs, systolic murmur - GI/Abdominal GI/Abdominal exam: Present: normal bowel sounds, soft, no peritoneal signs. Absent: distended, tenderness - Extremities Exam Extremities exam: Present: warm, radial pulses palpable and symmetrical. Absent : calf tenderness, cyanotic, pedal edema Additional comments: R thumb in soft cast, neurovascularly intact - Neurological Exam Neurological exam: Present: alert, CN II-XII intact, oriented X3, no focal deficits. Absent: pronater drift, facial droop, speech deficit - Skin Skin exam: Present: dry, intact - Patient Status Disposition: Home, Self-Care Condition: Good Functional capacity at discharge: independent ambulation Overall status at discharge: patient is back to baseline - Discharge Instructions Follow Up With: Manny Sheldon MD [Primary Care Provider] - - Diet and Activity Activity: resume usual activities as tolerated Diet: diabetic diet, low salt diet - VTE Documentation of Mechanical Device: Intermittent pneumatic compression device
[2017-12-03 11:03] VITALS: BP 129/72
[2017-12-03] MEDS ORDERED: Azithromycin 250 MG TABLET PO SCH (18:00)
--- NOTE | 2017-12-04 06:55 | Electrocardiograph Report ---
[address] [place] [address] Test Date: 2017-12-01 Pat Name: Catherine Jameson Department: 103 Room: 2A32 Gender: F Rink Rat: : 1945 Requested By: Mariola Patel Order Number: [id number] Reading MD: Juanito Tolentino Measurements Intervals [place] Rate: 63 P: 17 NV: 120 QRS: 10 QRSD: 89 T: -89 QT: 390 QTc: 398 Interpretive Statements SINUS RHYTHM ANTEROLATERAL ISCHEMIA BASELINE ARTIFACT Electronically Signed On 12-04-2017 6:53:44 EDT by Juanito Tolentino
== END 2017-12-03 13:30 | disposition home or self-care (01) ==
LOC: 2ANU 14:29 → EMEROO 14:29 → SUATTDRO 17:26 → 2ANU 18:44
PROVIDERS: ADMIT Hospitalist; ATTEND Internal Medicine